=== PATIENT | female | born 1965 | race Caucasian/White ===

== ENCOUNTER 2017-10-13 15:59 | Emergency (ER) | payer OTHER ==
[2017-10-13 16:41] VITALS: BP 150/76; PULSE 76; RESP 18; TEMP 98.1; O2SAT 99
[2017-10-13] MEDS ORDERED: Naproxen 500 MG TAB PO STA (17:51)
[2017-10-13] MEDS ORDERED: Naproxen 500 MG TAB PO ONE (18:03)
--- NOTE | 2017-10-13 18:08 | ED PDOC ---
HPI: Back Time Seen by Provider: 10/13/17 17:02 Chief Complaint (Nursing): Back Pain Chief Complaint (Provider): Back Pain History Per: Patient History/Exam Limitations: no limitations Onset/Duration Of Symptoms: Days (x3 days) Current Symptoms Are (Timing): Still Present Quality Of Discomfort: Sharp Additional Complaint(s): 52 y/o female presents to the ED complaining of right lower back pain,that has been stronger since past 3 days. Pain is sharp and worse with weightbearing on the right leg. Pain radiates to the buttocks. Reports taking Tylenol without relief. Denies fever, numbness and tingling, bladder and bowel incontinence or any further medical complaints. PMD: Ildefonso Melendez MD Past Medical History Reviewed: Historical Data, Nursing Documentation, Vital Signs Vital Signs: Last Vital Signs Temp 98.1 F 10/13/17 16:38 Pulse 76 10/13/17 16:38 Resp 18 10/13/17 16:38 BP 150/76 10/13/17 16:38 Pulse Ox 99 10/13/17 16:38 - Medical History PMH: No Chronic Diseases - Surgical History Surgical History: No Surg Hx - Family History Family History: States: No Known Family Hx - Living Arrangements Living Arrangements: With Family - Social History Current smoker - smoking cessation education provided: No - Home Medications Home Medications: Ambulatory Orders Medication Instructions Recorded Cyclobenzaprine [Cyclobenzaprine 10 mg PO Q8H PRN #12 tab 10/13/17 HCl] Naproxen [Naprosyn] 500 mg PO BID PRN #20 tablet 10/13/17 Naproxen [Naprosyn] 500 mg PO BID PRN #20 tablet 10/13/17 - Allergies Allergies/Adverse Reactions: Allergies Allergy/AdvReac Type Severity Reaction Status Date / Time shrimp Allergy SHORTNESS Verified 10/13/17 16:38 OF BREATH Review of Systems ROS Statement: Except As Marked, All Systems Reviewed And Found Negative (As per HPI, otherwise negative) Constitutional: Negative for: Fever Genitourinary Female: Negative for: Incontinence (Bladder or bowel incontinence) Musculoskeletal: Positive for: Back Pain Neurological: Negative for: Numbness (and tingling) Physical Exam - Reviewed Nursing Documentation Reviewed: Yes Vital Signs Reviewed: Yes - Physical Exam Appears: Positive for: Non-toxic, No Acute Distress Head Exam: Positive for: ATRAUMATIC, NORMOCEPHALIC Skin: Positive for: Normal Color Eye Exam: Positive for: Normal appearance ENT: Positive for: Normal ENT Inspection Neck: Positive for: Normal Respiratory: Negative for: Accessory Muscle Use, Respiratory Distress Back: Positive for: Normal Inspection, Other (right leg raise). Negative for: L CVA Tenderness, R CVA Tenderness, Vertebral Tenderness Extremity: Positive for: Normal ROM. Negative for: Deformity Neurologic/Psych: Positive for: Alert, Oriented - ECG O2 Sat by Pulse Oximetry: 99 (RA) Pulse Ox Interpretation: Normal Medical Decision Making Medical Decision Making: Time: 17:51 Initial Impression: back pain Plan: Cyclobenzaprine 10mg PO Naproxen 500mg PO Scribe Attestation: Documented by Alec Ochoa acting as a scribe for SANDY Alonso. Scribe Attestation: All medical record entries made by the Scribe were at my direction and personally dictated by me. I have reviewed the chart and agree that the record accurately reflects my personal performance of the history, physical exam, medical decision making, and the department course for this patient. I have also personally directed, reviewed, and agree with the discharge instructions and disposition. Disposition - Clinical Impression Clinical Impression: Sciatica - Patient ED Disposition Is Patient to be Admitted: No Counseled Patient/Family Regarding: Diagnosis, Need For Followup, Rx Given - Disposition Disposition: Routine/Home Disposition Time: 18:59 Condition: GOOD Prescriptions: Cyclobenzaprine [Cyclobenzaprine HCl] 10 mg PO Q8H PRN #12 tab PRN Reason: Muscle Spasm Naproxen [Naprosyn] 500 mg PO BID PRN #20 tablet PRN Reason: Pain Naproxen [Naprosyn] 500 mg PO BID PRN #20 tablet PRN Reason: Pain Instructions: Sciatica Forms: [id number] (Portuguese)
== END 2017-10-13 19:08 | disposition home or self-care (01) ==
LOC: H.ER 15:59
DX: M54.31 Sciatica, right side (principal)

== ENCOUNTER 2018-01-11 14:58 | Emergency (ER) | payer OTHER ==
[2018-01-11 15:15] VITALS: BP 123/84; PULSE 77; RESP 19; TEMP 98; O2SAT 97
--- NOTE | 2018-01-11 16:17 | RAD ---
Date of service: 01/11/2018 PROCEDURE: Right Index finger radiographs. HISTORY: pain COMPARISON: None. TECHNIQUE: AP radiograph of the right hand, as well as spot oblique and lateral images of index finger were obtained. FINDINGS: RIGHT INDEX FINGER: Suspect displaced oblique intra-articular fracture at the radial base of the 2nd distal phalanx. No other fracture identified. Remainder of the right hand (as seen on the AP view) grossly intact. JOINTS: Normal. SOFT TISSUES: Soft tissue swelling seen about distal 2nd digit OTHER FINDINGS: None. IMPRESSION: Suspected displaced intra-articular fracture base of 2nd distal phalanx.
--- NOTE | 2018-01-11 16:42 | ED PDOC ---
Upper Extremity Pain/Injury Time Seen by Provider: 01/11/18 15:16 Chief Complaint (Nursing): Upper Extremity Problem/Injury Chief Complaint (Provider): Upper Extremity Problem/Injury History Per: Patient History/Exam Limitations: no limitations Onset/Duration Of Symptoms: Days (x1) Current Symptoms Are (Timing): Still Present Additional Complaint(s): 52 year old female arrives to ED with for an evaluation of pain and swelling to her right 2nd digit since this morning. She denies any fever, chills , numbness, tingling, trauma, injury or history of diabetes. PMD: Dr. Ildefonso Melendez Past Medical History Reviewed: Historical Data, Nursing Documentation, Vital Signs Vital Signs: Last Vital Signs Temp 98 F 01/11/18 15:11 Pulse 77 01/11/18 15:11 Resp 19 01/11/18 15:11 BP 123/84 01/11/18 15:11 Pulse Ox 97 01/11/18 15:11 - Medical History PMH: No Chronic Diseases - Surgical History Surgical History: No Surg Hx - Family History Family History: States: Unknown Family Hx - Home Medications Home Medications: Ambulatory Orders Medication Instructions Recorded Cyclobenzaprine [Cyclobenzaprine 10 mg PO Q8H PRN #12 tab 10/13/17 HCl] Naproxen [Naprosyn] 500 mg PO BID PRN #20 tablet 10/13/17 Naproxen [Naprosyn] 500 mg PO BID PRN #20 tablet 10/13/17 Amoxicillin/Clavulanate [Augmentin 1 tab PO BID #20 tab 01/11/18 500 MG-125 MG] Naproxen [Naprosyn] 500 mg PO BID PRN #10 tab 01/11/18 - Allergies Allergies/Adverse Reactions: Allergies Allergy/AdvReac Type Severity Reaction Status Date / Time shrimp Allergy SHORTNESS Verified 01/11/18 15:15 OF BREATH Review of Systems ROS Statement: Except As Marked, All Systems Reviewed And Found Negative Constitutional: Negative for: Fever, Chills Musculoskeletal: Positive for: Hand Pain (right 2nd digit with swelling). Negative for: Other (trauma or injury) Neurological: Negative for: Numbness (or tingling) Physical Exam - Reviewed Nursing Documentation Reviewed: Yes Vital Signs Reviewed: Yes - Physical Exam Appears: Positive for: Well, Non-toxic, No Acute Distress Pulses-Radial (R): 2+ Extremity: Positive for: Normal ROM (actively to right second digit), Tenderness (mildly to distal right 2nd phalanx), Capillary Refill (<2 seconds to right 2nd digit), Swelling (minimally to distal right 2nd phalanx). Negative for: Other (skin break integrity, fluctuance or streaking) - ECG O2 Sat by Pulse Oximetry: 97 (RA) Pulse Ox Interpretation: Normal Medical Decision Making Medical Decision Making: Initial Impression: Finger pain Initial Plan: * Xray hand (right 2nd digit) Time: 1615 --Xray hand (right) FINDINGS: RIGHT INDEX FINGER: Suspect displaced oblique intra-articular fracture at the radial base of the 2nd distal phalanx. No other fracture identified. Remainder of the right hand ( as seen on the AP view) grossly intact. JOINTS: Normal. SOFT TISSUES: Soft tissue swelling seen about distal 2nd digit OTHER FINDINGS: None. IMPRESSION: Suspected displaced intra-articular fracture base of 2nd distal phalanx. Time: 1606 --Upon provider re-evaluation patient is medically stable and requires no further treatment in the ED at this time. Xray findings were discussed with patient and , noting that a fracture is unlikely as per history. Patient adamantly denies any trauma to finger. Patient will be discharged with Rx for Augmentin and Naprosyn. Counseling was provided and all questions were answered regarding diagnosis and need for follow up with deaf/hard of hearing specialist. There is agreement to discharge plan. Return if symptoms persist or worsen. Clinical Impression: Finger pain Scribe Attestation: Documented by Karis Sanchez, acting as a scribe for Chong Longo PA-C. Provider Scribe Attestation: All medical record entries made by the Scribe were at my direction and personally dictated by me. I have reviewed the chart and agree that the record accurately reflects my personal performance of the history, physical exam, medical decision making, and the department course for this patient. I have also personally directed, reviewed, and agree with the discharge instructions and disposition. Disposition - Clinical Impression Clinical Impression: Finger pain - Patient ED Disposition Is Patient to be Admitted: No Counseled Patient/Family Regarding: Studies Performed, Diagnosis, Need For Followup, Rx Given - Disposition Referrals: Kumar Johnson MD [Medical Doctor] - Disposition: Routine/Home Disposition Time: 16:05 Condition: STABLE Additional Instructions: ISA HELTON, thank you for letting us take care of you today. Your provider was Evonne Jones MD and you were treated for RT FINGER PAIN. The emergency medical care you received today was directed at your acute symptoms. If you were prescribed any medication, please fill it and take as directed. It may take several days for your symptoms to resolve. Return to the Emergency Department if your symptoms worsen, do not improve, or if you have any other problems. Please contact your doctor or call one of the physicians/clinics you have been referred to that are listed on the Patient Visit Information form that is included in your discharge packet. Bring any paperwork you were given at discharge with you along with any medications you are taking to your follow up visit. Our treatment cannot replace ongoing medical care by a primary care provider outside of the emergency department. Thank you for allowing the [facility] team to be part of your care today. If you had an X-Ray or CT scan: A Radiologist will review the ED reading if any change in treatment is needed we will contact you. If you had a blood, urine, or wound culture: It will take several days for the results, if any change in treatment is needed we will contact you. If you had an STI test: It will take 48 hours for the results. Please call after 1 week if you have not heard back. Prescriptions: Amoxicillin/Clavulanate [Augmentin 500 MG-125 MG] 1 tab PO BID #20 tab Naproxen [Naprosyn] 500 mg PO BID PRN #10 tab PRN Reason: Pain Instructions: Joint Pain Forms: Dash Hudson (German) Print Language: NIGERIEN
== END 2018-01-11 16:36 | disposition home or self-care (01) ==
LOC: H.ER 14:58
DX: S69.91XA Unspecified injury of right wrist, hand and finger(s), initial encounter (principal); Y92.89 Other specified places as the place of occurrence of the external cause